=== PATIENT | female | born 1940 | race Caucasian/White ===

== ENCOUNTER 2023-08-31 17:24 | Inpatient (IN) | payer OTHER ==
[~2023-08-31] VITALS: Ht 154.9 cm; Wt 58.5 kg
[2023-08-31 17:28] VITALS: BP_SYST 168; PULSE 71; RESP 16; TEMP 97.8; O2SAT 98
[2023-08-31 18:12] LABS: BILIRUBIN,URINE NEGATIVE (NEGATIVE); BLOOD, URINE NEGATIVE (NEGATIVE); CLARITY/URINE CLEAR (CLEAR); COLOR,URINE YELLOW (YELLOW); GLUCOSE,URINE NEGATIVE (NEGATIVE); KETONES,URINE TRACE (NEGATIVE); LEUKOCYTE ESTERASE ,URINE NEGATIVE (NEGATIVE); NITRITE, URINE NEGATIVE (NEGATIVE); PH,URINE 5.5 (5.0-8.0); PROTEIN URINE NEGATIVE (NEGATIVE); UROBILINOGEN,URINE 0.2 (0.2-1.0)
[2023-08-31 19:01] LABS: BASOPHILS % (AUTO) 0.3 % (0.0-2.0); EOSINOPHILS # (AUTO) 0.6 K/uL (0.0-0.4); EOSINOPHILS % (AUTO) 6.9 % (0.0-4.0); HEMATOCRIT 35.5 % (36-48); HEMOGLOBIN 11.9 g/dL (12.0-16.0); LYMPHOCYTES # (AUTO) 2.7 K/uL (1.0-5.5); LYMPHOCYTES % (AUTO) 29.1 % (20.5-51.5); MEAN CORPUSCULAR HEMOGLOBIN 27 pg (27-31); MEAN CORPUSCULAR HGB CONC 34 % (32-36); MEAN CORPUSCULAR VOLUME 81 fL (79.0-98.0); MONOCYTES # (AUTO) 0.8 K/uL (0.0-1.0); MONOCYTES % (AUTO) 8.6 % (1.7-9.3); NEUTROPHILS # (AUTO) 5.2 K/uL (1.8-7.7); NEUTROPHILS % (AUTO) 55.1 % (40.0-70.0); PLATELET COUNT (AUTO) 302 K/uL (130-430); RED BLOOD CELL COUNT(AUTO) 4.36 MIL/uL (4.2-6.2); RED CELL DISTRIBUTION WIDTH 14.3 % (9.0-15.0); WHITE BLOOD COUNT (AUTO) 9.3 K/uL (4.8-10.8)
[2023-08-31 19:13] LABS: ALANINE AMINOTRANSFERASE 19 U/L (12-78); ALBUMIN 3.5 g/dL (3.4-4.8); ANION GAP 10 (5-15); ASPARTATE AMINOTRANSFERASE 18 U/L (10-37); CALCIUM 9.2 mg/dL (8.4-11.0); CARBON DIOXIDE 27 mmol/L (23-29); CHLORIDE 105 mmol/L (98-107); CREATININE 1.02 mg/dL (0.55-1.30); GLUCOSE 121 mg/dL (74-106); POTASSIUM 3.9 mmol/L (3.5-5.1); SODIUM SERUM 142 mmol/L (136-145); TOTAL BILIRUBIN 0.6 mg/dL (0.0-1.0); TOTAL PROTEIN, SERUM 8.2 g/dL (6.4-8.3); UREA NITROGEN, BLOOD 20 mg/dL (8-21)
[2023-08-31 19:16] LABS: BILIRUBIN,DIRECT 0.2 mg/dL (0.0-0.3); CREATINE KINASE, TOTAL 55 U/L (26-192)
[2023-08-31 19:21] LABS: PROTHROMBIN TIME 10.8 SECS (9.5-12.5)
[2023-08-31] MEDS ORDERED: CLOP75TA32 PO (19:41)
[2023-08-31] MEDS ORDERED: LORazepam 2 MG/ML VIAL IVP PRN (19:45)
[2023-08-31] MEDS ORDERED: MORPHINE 2 MG/ML INJ. SYRINGE IVP PRN ×2 (19:45)
[2023-08-31] MEDS ORDERED: DOCUSATE SODIUM 100 MG CAPSULE PO PRN (19:45)
[2023-08-31] MEDS ORDERED: ZOLPIDEM TARTRATE 5 MG TABLET PO PRN (19:45)
[2023-08-31] MEDS ORDERED: MUPIROCIN 2% TOPICAL OINTMENT 22 GM NS PRN (19:45)
[2023-08-31] MEDS ORDERED: ONDANSETRON HCL 4 MG/2 ML VIAL IVP PRN (19:45)
[2023-08-31] MEDS ORDERED: METF-379 PO (19:49)
[2023-08-31] MEDS ORDERED: LOSA-413 PO (19:50)
[2023-08-31] MEDS ORDERED: LIP40 PO (19:51)
[2023-08-31] MEDS ORDERED: ACETAMINOPHEN 500 MG TABLET PO PRN (20:00)
[2023-08-31] MEDS: NACL 0.9% 1,000 ML IV SCH (20:48)
[2023-08-31] MEDS: METOPROLOL TARTRATE 25 MG TABLET PO SCH (21:40)
[2023-08-31] MEDS ORDERED: HYDROCHLOROTHIAZIDE 25 MG TABLET (HCTZ) ONE (23:32)
[2023-08-31] MEDS: HYDROCHLOROTHIAZIDE 25 MG TABLET (HCTZ) PO SCH (23:35)
[2023-09-01] VITALS (9 sets, daily range): BP systolic 132–146; PULSE 64–87; RESP 18; TEMP 96.6–97.9; O2SAT 95–98
[2023-09-01] MEDS ORDERED: cloNIDine HCL 0.1 MG TABLET ONE (05:53)
[2023-09-01] MEDS: cloNIDine HCL 0.2 MG TABLET PO PRN (05:55)
[2023-09-01 06:33] LABS: BASOPHILS % (AUTO) 0.4 % (0.0-2.0); EOSINOPHILS # (AUTO) 0.6 K/uL (0.0-0.4); EOSINOPHILS % (AUTO) 7.6 % (0.0-4.0); HEMATOCRIT 34.8 % (36-48); HEMOGLOBIN 11.7 g/dL (12.0-16.0); LYMPHOCYTES # (AUTO) 2.4 K/uL (1.0-5.5); LYMPHOCYTES % (AUTO) 30.4 % (20.5-51.5); MEAN CORPUSCULAR HEMOGLOBIN 28 pg (27-31); MEAN CORPUSCULAR HGB CONC 34 % (32-36); MEAN CORPUSCULAR VOLUME 82 fL (79.0-98.0); MONOCYTES # (AUTO) 0.6 K/uL (0.0-1.0); MONOCYTES % (AUTO) 7.3 % (1.7-9.3); NEUTROPHILS # (AUTO) 4.2 K/uL (1.8-7.7); NEUTROPHILS % (AUTO) 54.3 % (40.0-70.0); PLATELET COUNT (AUTO) 278 K/uL (130-430); RED BLOOD CELL COUNT(AUTO) 4.25 MIL/uL (4.2-6.2); RED CELL DISTRIBUTION WIDTH 14.2 % (9.0-15.0); WHITE BLOOD COUNT (AUTO) 7.7 K/uL (4.8-10.8)
[2023-09-01 07:09] LABS: ANION GAP 12 (5-15); CALCIUM 9.6 mg/dL (8.4-11.0); CARBON DIOXIDE 25 mmol/L (23-29); CHLORIDE 104 mmol/L (98-107); CHOLESTEROL 110 mg/dL (<200); CREATININE 0.91 mg/dL (0.55-1.30); GLUCOSE 112 mg/dL (74-106); HDL CHOLESTEROL 61 mg/dL (>55); POTASSIUM 3.5 mmol/L (3.5-5.1); SODIUM SERUM 141 mmol/L (136-145); TRIGLYCERIDES 80 mg/dL (30-150); UREA NITROGEN, BLOOD 15 mg/dL (8-21)
[2023-09-01] MEDS ORDERED: DEXTROSE 50% JECT 50 ML DISP.SYRIN IVP PRN (08:45)
[2023-09-01] MEDS: metFORMIN HCL 500 MG TABLET PO SCH (12:17)
[2023-09-01] MEDS: ATORVASTATIN 20 MG TABLET PO SCH (12:18)
[2023-09-01] MEDS: CLOPIDOGREL BISULFATE 75 MG TABLET PO SCH (12:18)
[2023-09-01] MEDS: INSULIN LISPRO SLIDING SCALE 100 UNITS/ML, 3 ML VIAL (humaLOG) SUBCUT PRN (12:19)
[2023-09-01] MEDS: MAGNESIUM SULFATE 50 ML IV PRN (21:43)
[2023-09-02] VITALS (8 sets, daily range): BP systolic 127–140; PULSE 59–99; RESP 16–18; TEMP 97.6–98; O2SAT 95–100
[2023-09-02 06:19] LABS: BASOPHILS % (AUTO) 0.3 % (0.0-2.0); EOSINOPHILS # (AUTO) 0.5 K/uL (0.0-0.4); HEMATOCRIT 34.3 % (36-48); HEMOGLOBIN 11.5 g/dL (12.0-16.0); LYMPHOCYTES # (AUTO) 2.6 K/uL (1.0-5.5); LYMPHOCYTES % (AUTO) 29.9 % (20.5-51.5); MEAN CORPUSCULAR HEMOGLOBIN 27 pg (27-31); MEAN CORPUSCULAR HGB CONC 34 % (32-36); MEAN CORPUSCULAR VOLUME 81 fL (79.0-98.0); MONOCYTES # (AUTO) 0.6 K/uL (0.0-1.0); MONOCYTES % (AUTO) 7.2 % (1.7-9.3); NEUTROPHILS # (AUTO) 4.9 K/uL (1.8-7.7); NEUTROPHILS % (AUTO) 56.6 % (40.0-70.0); PLATELET COUNT (AUTO) 283 K/uL (130-430); RED BLOOD CELL COUNT(AUTO) 4.23 MIL/uL (4.2-6.2); RED CELL DISTRIBUTION WIDTH 14.2 % (9.0-15.0); WHITE BLOOD COUNT (AUTO) 8.7 K/uL (4.8-10.8)
[2023-09-02 06:22] LABS: ANION GAP 12 (5-15); CALCIUM 9.5 mg/dL (8.4-11.0); CARBON DIOXIDE 25 mmol/L (23-29); CHLORIDE 105 mmol/L (98-107); CREATININE 1.04 mg/dL (0.55-1.30); GLUCOSE 103 mg/dL (74-106); POTASSIUM 3.2 mmol/L (3.5-5.1); SODIUM SERUM 142 mmol/L (136-145); UREA NITROGEN, BLOOD 20 mg/dL (8-21)
[2023-09-02] MEDS ORDERED: CALMO120 TP (07:34)
[2023-09-02] MEDS ORDERED: HYDR25TA4 PO (07:36)
[2023-09-02] MEDS: POTASSIUM CHLORIDE 20 MEQ TABLET.ER PO PRN (08:53)
[2023-09-02] MEDS: MENTHOL/ZINC OXIDE 113 GM OINT. TP SCH (08:55)
[2023-09-02] MEDS ORDERED: DIPHENHYDRAMINE HCL 25 MG CAPSULE PO PRN (11:45)
[2023-09-03 08:00] VITALS: BP_SYST 134; PULSE 77; RESP 16; TEMP 98.2; O2SAT 98
[2023-09-03 10:44] VITALS: O2SAT 98
[2023-09-03 12:07] VITALS: BP_SYST 130; PULSE 70; RESP 16; TEMP 98; O2SAT 98
== END 2023-09-03 17:00 | DRG 57 ==
LOC: SED 17:24 → SMU 19:44
PROVIDERS: ADMIT General Practice; ATTEND General Practice
DX: G30.9 Alzheimer's disease, unspecified (principal); G90.9 Disorder of the autonomic nervous system, unspecified; I10 Essential (primary) hypertension; R62.7 Adult failure to thrive; E11.65 Type 2 diabetes mellitus with hyperglycemia; I25.10 Atherosclerotic heart disease of native coronary artery without angina pectoris; F02.80 Dementia in other diseases classified elsewhere, unspecified severity, without behavioral disturbance, psychotic disturbance, mood disturbance, and anxiety; E11.43 Type 2 diabetes mellitus with diabetic autonomic (poly)neuropathy; E78.5 Hyperlipidemia, unspecified; Z86.73 Personal history of transient ischemic attack (TIA), and cerebral infarction without residual deficits; Z79.84 Long term (current) use of oral hypoglycemic drugs; Z79.899 Other long term (current) drug therapy
CPT/HCPCS: 36415; 70450-TC; 71045; 80048; 80061; 80076; 81001; 81003; 82550; 82948; 83037; 83735; 84443; 84484; 85025; 85610; 85730; 93005; 93880; 99285; J3475; Q0163